=== PATIENT | male | born 1980 ===

== ENCOUNTER → 2024-11-28 | Outpatient (CLI) | payer OTHER ==
--- NOTE | 2024-11-28 13:07 | DVH ---
CLINICAL INDICATION: 44 years old, Male; [employer]. TECHNIQUE: Noncontrast CT of the right knee was performed. Sagittal and coronal reformatted images ar e provided. COMPARISON: None CT Dose: CTDI volume is 7.75 mGy. Dose-length product is 229.22 mGy*cm FINDINGS: There is a lateral tibial plateau fracture status post fixation with a plate and several screws. Hard winslow is intact. There is slight depression of the articular surface by approximately 3 mm, with smal l subchondral cysts in the articular surface. There is lateral joint space narrowing and osteophyte f ormation. Mild medial compartment joint space narrowing. Patellofemoral joint space is maintained. There is no evidence of acute fracture. No abnormal alignment. Small knee joint effusion, which may be physiologic. Regional soft tissues are unremarkable. Muscles are normal in bulk and attenuation. IMPRESSION: 1. Status post open reduction internal fixation of a lateral tibial plateau fracture. 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 2. Mild degenerative changes in the medial compartment. 3. No acute osseous abnormality. All CT scans at this medical facility are performed using dose modulation techniques as appropriate t o a performed exam including the following: Automated exposure control was utilized; adjustment of th e MA and/or KV according to patient size; and use of iterative reconstruction technique. HS:Y
== END | disposition home or self-care (01) ==
LOC: XYW 10:36
DX: S82.141D Displaced bicondylar fracture of right tibia, subsequent encounter for closed fracture with routine healing (principal); M17.31 Unilateral post-traumatic osteoarthritis, right knee; M25.761 Osteophyte, right knee; M25.461 Effusion, right knee; X58.XXXD Exposure to other specified factors, subsequent encounter
CPT/HCPCS: 73700